=== PATIENT | male | born 1970 | race Caucasian/White ===

== ENCOUNTER 2017-08-16 13:30 | Emergency (ER) | payer BC ==
[2017-08-16 13:38] VITALS: BP 163/95; PULSE 117; RESP 16; TEMP 97.4; O2SAT 100
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
== END 2017-08-16 17:20 | disposition home or self-care (01) ==
LOC: H.ER 13:30
DX: S09.90XA Unspecified injury of head, initial encounter (principal); Y04.0XXA Assault by unarmed brawl or fight, initial encounter; Y92.89 Other specified places as the place of occurrence of the external cause; E11.9 Type 2 diabetes mellitus without complications; I10 Essential (primary) hypertension; I25.10 Atherosclerotic heart disease of native coronary artery without angina pectoris; Z88.0 Allergy status to penicillin; Z95.1 Presence of aortocoronary bypass graft